=== PATIENT | female | born 1960 | race Caucasian/White ===

== ENCOUNTER 2023-09-08 05:41 | Observation (INO) ==
[2023-09-08] MEDS ORDERED: Chlorhexidine MOUTHWASH 0.12% 15 ML UDC ONE (05:50)
[2023-09-08] MEDS ORDERED: ceFAZolin 2 GM PREMIX 2 GM/50 ML BAG ONE (06:10)
[2023-09-08] MEDS ORDERED: Dexamethasone IV 4 MG/ML VIAL 1 ml VIAL ONE (06:10)
[2023-09-08] MEDS ORDERED: Famotidine IV 10 MG/ML 2 ml VIAL (20 mg) ONE (06:10)
[2023-09-08 06:21] LABS: Rapid COVID-19 Molecular Undetected (Undetected)
[2023-09-08] MEDS: Dexamethasone IV 4 MG/ML VIAL 1 ml VIAL IV SLOW PU ONE (06:28)
[2023-09-08] MEDS: Buffered Lidocaine 1% SYRIN 1 ml INTRADERM ONE (06:28)
[2023-09-08] MEDS: Famotidine IV 10 MG/ML 2 ml VIAL (20 mg) IV ONE (06:28)
[2023-09-08] MEDS: Lactated Ringers 1000 ml BAG 1,000 ML IV SCH ×2 (06:28→12:53)
[2023-09-08] MEDS ORDERED: Thrombin 5,000 UNITS(BOVINE) for Ultrasound Guided Pseudoaneursym ONE (06:39)
[2023-09-08] MEDS ORDERED: ceFAZolin VIAL VIAL ONE (06:39)
[2023-09-08] MEDS ORDERED: Lidocaine 1% w EPI 1:100,000 MDV 20 ML VIAL ONE (06:39)
[2023-09-08] MEDS ORDERED: Midazolam 2 mg/2 ml VIAL 1 mg/ml 2 ml VIAL (2 mg) ONE (07:03)
[2023-09-08] MEDS ORDERED: Propofol 10 MG/ML 20 ML BTL ONE (07:03)
[2023-09-08] MEDS ORDERED: fentaNYL 100 mcg/2 ml 50 MCG/ML VIAL ONE ×4 (07:03→10:39)
[2023-09-08] MEDS ORDERED: Lidocaine 2% PF 5 ML VIAL ONE (07:04)
[2023-09-08] MEDS ORDERED: Rocuronium 50 mg VIAL 10 mg/ml 5 ml VIAL (50 mg) ONE ×2 (07:04→08:29)
[2023-09-08] MEDS ORDERED: Morphine 4 MG/ML VIAL (1 ml) IV PRN (07:34)
[2023-09-08] MEDS ORDERED: Naloxone 0.4 mg VIAL 0.4 mg/ml 1 ml VIAL IV PRN (07:34)
[2023-09-08] MEDS ORDERED: Phenylephrine 40 mcg/mL 10mL (400mcg) SYRINGE ONE (07:56)
[2023-09-08] MEDS ORDERED: Phenylephrine IV 10 MG/ML 1 ml VIAL ONE (08:14)
[2023-09-08] MEDS ORDERED: Ondansetron 4 mg VIAL 2 MG/ML 2 ml VIAL ONE (08:54)
[2023-09-08] MEDS ORDERED: Phenol 1.4% Throat Spray BTL MT PRN (09:41)
[2023-09-08] MEDS ORDERED: Calcium Carb (TUMS) 500 mg CHEW TAB PO PRN (09:41)
[2023-09-08] MEDS ORDERED: Dextran 70/Hypromellose Tears Eye Drops 15 ml BTL (for Artificials Tears) BOTH EYES PRN (09:41)
[2023-09-08] MEDS ORDERED: Senna TAB 8.6 mg TAB PO PRN (09:41)
[2023-09-08] MEDS ORDERED: Morphine 2 MG/ML SYRINGE IV PRN (09:41)
[2023-09-08] MEDS: fentaNYL 100 mcg/2 ml 50 MCG/ML VIAL IV PRN (09:49)
[2023-09-08] MEDS: Benzocaine/Menthol LOZ MT PRN (16:12)
[2023-09-08] MEDS: Ondansetron 4 mg VIAL 2 MG/ML 2 ml VIAL IV PRN (16:16)
[2023-09-09 05:31] VITALS: BP 138/57
== END 2023-09-09 11:00 | disposition home or self-care (01) ==
LOC: INTOOBSV 05:41 → AA 05:41 → SSU 09:41
PROVIDERS: ADMIT Neurological Surgery; ATTEND Neurological Surgery